=== PATIENT | female | born 2000 | race African-American/Black ===

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

== ENCOUNTER 2019-03-08 18:43 | Emergency (ER) | payer MEDICAID ==
[~2019-03-08] VITALS: Ht 157.5 cm; Wt 65.0 kg
[2019-03-08 18:52] VITALS: BP 139/74
== END 2019-03-08 23:45 | disposition left against medical advice (07) ==
LOC: ER 18:43
DX: R10.9 Unspecified abdominal pain (principal); Z53.21 Procedure and treatment not carried out due to patient leaving prior to being seen by health care provider

== ENCOUNTER 2020-06-29 17:21 | Emergency (ER) | payer MEDICAID ==
[~2020-06-29] VITALS: Ht 157.5 cm; Wt 61.0 kg
[2020-06-29 18:57] VITALS: BP 129/98
[2020-06-29] MEDS ORDERED: SODIUM CHLORIDE 0.9% 1,000 ML IV ONE (19:15)
[2020-06-29] MEDS ORDERED: FAMOTIDINE 20MG TABLET PO ONE (19:30)
[2020-06-29] MEDS ORDERED: MAGNESIUM/ALUMINUM HYDROXIDE/SIMETHICONE 30ML UDC PO ONE (19:30)
[2020-06-29] MEDS ORDERED: VISCOUS LIDOCAINE 2% 15 ML UDC MM STA (19:30)
[2020-06-29 19:50] LABS: EOSINOPHILS % 0.1 % (0.0-5.0); HEMATOCRIT. 38.5 % (36.0-48.0); HEMOGLOBIN. 12.6 g/dL (12.0-16.0); LYMPHOCYTES % 21.3 % (20.0-50.0); MEAN CORPUSCULAR VOLUME 88.4 fL (81.0-99.0); MEAN PLATELET VOLUME 8.3 fl (7.4-10.4); NEUTROPHILS % 71.6 % (40.0-76.0); PLATELET 382 x1000/uL (130-400); RED BLOOD CELL COUNT 4.35 mill/uL (4.2-5.4); RED CELL DISTRIBUTION WIDTH 14.4 % (11.6-14.6)
[2020-06-29 19:58] LABS: CHLORIDE 101 mEq/L (98-107)
[2020-06-29 20:12] LABS: HCG SCREEN NEGATIVE
[2020-06-29 21:26] LABS: CLARITY URINE CLEAR (CLEAR); COLOR URINE YELLOW (YELLOW); KETONES URINE 3+ (NEGATIVE); LEUKOCYTE ESTERASE URINE NEGATIVE (NEGATIVE); NITRITE URINE NEGATIVE (NEGATIVE); OCCULT BLOOD URINE 1+ (NEGATIVE); PROTEIN URINE NEGATIVE (NEGATIVE); SPECIFIC GRAVITY URINE 1.008 (1.005-1.030); UROBILINOGEN URINE 0.2 E.U./dL (0.2-1.0)
[2020-06-29] MEDS ORDERED: MAG355OR21 MT (22:52)
== END 2020-06-30 00:06 | disposition home or self-care (01) ==
LOC: ER 17:21
DX: K29.70 Gastritis, unspecified, without bleeding (principal); R00.0 Tachycardia, unspecified
CPT/HCPCS: 36415; 80048; 81003; 81025; 84703; 85025; 93005; 96360; 99283; J7030; Z7610